=== PATIENT | male | born 1995 | race Caucasian/White ===

== ENCOUNTER 2018-05-23 03:38 | Emergency (ER) | payer OTHER ==
[~2018-05-23] VITALS: Ht 167.6 cm; Wt 98.0 kg
[2018-05-23 03:39] VITALS: BP 135/99; Ht 167.6 cm; Wt 98.0 kg
== END 2018-05-23 04:50 | disposition other institution (70) ==
LOC: ED 03:38
DX: Z02.89 Encounter for other administrative examinations (principal)